=== PATIENT | female | born 1965 | race African-American/Black ===

== ENCOUNTER 2017-02-05 16:53 | Emergency (ER) | payer MEDICAID, OTHER ==
[~2017-02-05] VITALS: Ht 167.6 cm; Wt 81.6 kg
[~2017-02-05 16:53] MED LIST: ALBU8.5H3 INH; ALBU8.5H5 INH; AMLO5TAB2 PO; FLUT1AER INH; HYDR25TA6 PO; OMEP-110 PO; PRED20TA PO
[2017-02-05 18:24] LABS: ASPARTATE AMINO TRANSFERASE 9 U/L (15-37); BLOOD UREA NITROGEN 16 mg/dL (7-18)
[2017-02-05 18:48] LABS: HEMOGLOBIN 12.8 g/dL (11.7-16.4)
[2017-02-05] MEDS ORDERED: HALOPERIDOL 5 MG/ML IM ONE (19:00)
[2017-02-05 20:45] VITALS: BP 137/80
== END 2017-02-05 20:41 | disposition home or self-care (01) ==
LOC: ED 20:30
DX: R10.84 Generalized abdominal pain (principal); K59.00 Constipation, unspecified; R20.0 Anesthesia of skin; I10 Essential (primary) hypertension; J45.909 Unspecified asthma, uncomplicated; Z88.1 Allergy status to other antibiotic agents; Z88.2 Allergy status to sulfonamides
CPT/HCPCS: 36415; 74020; 80053; 81003; 83690; 84703; 85025

== ENCOUNTER 2017-02-26 15:42 | Emergency (ER) | payer MEDICAID ==
[~2017-02-26] VITALS: Ht 167.6 cm; Wt 79.0 kg
[2017-02-26 15:58] VITALS: BP 147/84
[2017-02-26] MEDS ORDERED: ALBUTEROL SULFATE 2.5 MG/3 ML NPPB ONE (16:30)
== END 2017-02-26 17:13 | disposition home or self-care (01) ==
LOC: ED 17:07
DX: J45.31 Mild persistent asthma with (acute) exacerbation (principal); J00 Acute nasopharyngitis [common cold]; M25.552 Pain in left hip; I10 Essential (primary) hypertension
CPT/HCPCS: 71020; 73502; 93005; 94640; 99284; J7512; J7613

== ENCOUNTER 2017-02-27 23:25 | Emergency (ER) | payer MEDICAID ==
[~2017-02-27] VITALS: Ht 167.6 cm; Wt 80.0 kg
[2017-02-27] MEDS ORDERED: SODIUM CHLORIDE 0.9% 1,000ML IVBOLUS ONE (23:30)
[2017-02-27] MEDS ORDERED: LORazepam 2 MG/ML, 1ML IVP ONE (23:30)
[2017-02-27] MEDS ORDERED: SODIUM CHLORIDE FLUSH 10ML SYR IVF ONE (23:30)
[2017-02-27] MEDS ORDERED: methylPREDNISolone SOD SUCC 125 MG/2 ML IVP ONE (23:30)
[2017-02-27] MEDS ORDERED: methylPREDNISolone SOD SUCC 125 MG/2 ML ONE (23:37)
[2017-02-27] MEDS ORDERED: LORazepam 2 MG/ML, 1ML ONE (23:38)
[2017-02-27] MEDS ORDERED: ALBUTEROL/IPRATROPIUM 2.5MG/0.5MG, 3 ML ONE (23:48)
[2017-02-28] MEDS ORDERED: ALBUTEROL/IPRATROPIUM 2.5MG/0.5MG, 3 ML NPPB ONE
[2017-02-28 00:02] LABS: HEMOGLOBIN 12.6 g/dL (11.7-16.4)
[2017-02-28 00:12] LABS: BLOOD UREA NITROGEN 13 mg/dL (7-18)
[2017-02-28 00:16] LABS: IS PT STATUS REG ER OR PRE ER? YES
[2017-02-28 00:53] VITALS: BP 156/98
== END 2017-02-28 00:55 | disposition home or self-care (01) ==
LOC: ED 23:44
DX: J45.901 Unspecified asthma with (acute) exacerbation (principal)
CPT/HCPCS: 36415; 71010; 80048; 80307; 82040; 83880; 84484; 85025; 85379; 93005; 94640; 96361; 96374; 96375; 99285; J2060; J2930; J7030; J7620

== ENCOUNTER 2017-06-03 01:06 | Emergency (ER) | payer SELFPAY ==
[~2017-06-03] VITALS: Ht 167.6 cm; Wt 54.5 kg
[2017-06-03] MEDS ORDERED: ASPIRIN 81 MG TABLET CHEW ONE (01:42)
[2017-06-03] MEDS: ASPIRIN 81 MG TABLET CHEW PO ONE ×2 (01:45→01:46)
[2017-06-03] MEDS ORDERED: SODIUM CHLORIDE 0.9% 1,000ML IVBOLUS ONE (02:00)
[2017-06-03] MEDS ORDERED: SODIUM CHLORIDE FLUSH 10ML SYR IVF ONE (02:00)
[2017-06-03 02:04] LABS: BLOOD UREA NITROGEN 15 mg/dL (7-18)
[2017-06-03 02:09] LABS: IS PT STATUS REG ER OR PRE ER? YES
[2017-06-03 06:19] LABS: IS PT STATUS REG ER OR PRE ER? YES
[2017-06-03 06:24] VITALS: BP 119/69
== END 2017-06-03 06:31 | disposition home or self-care (01) ==
LOC: ED 02:33
DX: R07.89 Other chest pain (principal); I10 Essential (primary) hypertension; J45.909 Unspecified asthma, uncomplicated; Z90.710 Acquired absence of both cervix and uterus
CPT/HCPCS: 36415; 71010; 80048; 82040; 83880; 84484; 85025; 85379; 93005; 96360; 96361; 99285; J7030

== ENCOUNTER 2017-09-02 19:05 | Emergency (ER) | payer BC ==
[~2017-09-02] VITALS: Ht 167.6 cm; Wt 88.9 kg
[~2017-09-02 19:05] MED LIST changes: -ALBU8.5H3 INH; +ALBU8.5H8 INH
[2017-09-02] MEDS ORDERED: KETOROLAC 30 MG/1 ML ONE (20:15)
[2017-09-02] MEDS ORDERED: KETOROLAC 30 MG/1 ML IM PRN (20:30)
[2017-09-02 21:56] VITALS: BP 124/80
== END 2017-09-02 21:58 | disposition home or self-care (01) ==
LOC: ED 20:07
DX: G44.219 Episodic tension-type headache, not intractable (principal); I10 Essential (primary) hypertension; J45.909 Unspecified asthma, uncomplicated; Z88.0 Allergy status to penicillin; Z90.710 Acquired absence of both cervix and uterus
CPT/HCPCS: 70450; 96372; 99284; J1885

== ENCOUNTER 2017-10-21 10:38 | Inpatient (IN) | payer BC ==
[~2017-10-21] VITALS: Ht 167.6 cm; Wt 86.4 kg
[2017-10-21] MEDS ORDERED: SODIUM CHLORIDE FLUSH 10ML SYR IVF ONE (11:30)
[2017-10-21 11:54] LABS: HEMATOCRIT 38.9 % (34.6-47.8); HEMOGLOBIN 12.9 g/dL (11.7-16.4); WHITE BLOOD COUNT 7.1 x10^3/uL (3.4-10)
[2017-10-21 12:03] LABS: ASPARTATE AMINO TRANSFERASE 26 U/L (15-37); BLOOD UREA NITROGEN 11 mg/dL (7-18)
[2017-10-21] MEDS ORDERED: HYDROmorphone 1 MG/ML, 1ML ONE ×3 (12:23→17:15)
[2017-10-21] MEDS ORDERED: ONDANSETRON 2MG/ML, 2ML ONE ×2 (12:23→15:18)
[2017-10-21] MEDS ORDERED: HYDROmorphone 1 MG/ML, 1ML IVPush PRN (12:30)
[2017-10-21] MEDS ORDERED: ONDANSETRON 2MG/ML, 2ML IVPush ONE ×2 (12:30→15:30)
[2017-10-21] MEDS ORDERED: OMNIPAQUE 350 MG/ML, 100ML BOTTLE ONE (12:54)
[2017-10-21] MEDS ORDERED: SODIUM CHLORIDE 0.9% 1,000 ML IV ONE (16:35)
[2017-10-21] MEDS: SODIUM CHLORIDE 0.9% 1,000 ML IV SCH ×2 (16:54→22:58)
[2017-10-21] MEDS ORDERED: LORazepam 2 MG/ML, 1ML IVPush PRN (17:00)
[2017-10-21] MEDS ORDERED: SODIUM CHLORIDE FLUSH 10ML SYR IVF PRN (17:00)
[2017-10-21] MEDS ORDERED: LABETALOL 5MG/ML, 20ML IVPush PRN (17:00)
[2017-10-21] MEDS ORDERED: PROMETHAZINE 25 MG/ML, 1ML IM PRN (17:00)
[2017-10-21] MEDS ORDERED: ENALAPRILAT 1.25 MG/ML, 2ML IVPush PRN (17:00)
[2017-10-21] MEDS ORDERED: ONDANSETRON ODT 4 MG PO PRN (17:00)
[2017-10-21] MEDS ORDERED: HYDROmorphone 2 MG/ML, 1ML IVPush PRN (17:00)
[2017-10-21] MEDS: ONDANSETRON 2MG/ML, 2ML IVPush PRN (17:48)
[2017-10-21] MEDS: ENOXAPARIN 40 MG/0.4 ML SQ SCH ×2 (17:49→21:00)
[2017-10-21 17:54] VITALS: BP 152/87
[2017-10-21 18:01] VITALS: BP 152/87
[2017-10-21 19:46] VITALS: BP 154/96
[2017-10-22 02:05] VITALS: BP 157/97
[2017-10-22] MEDS: SODIUM CHLORIDE 0.9% 1,000 ML IV SCH ×4 (04:24→21:58)
[2017-10-22 05:37] LABS: ASPARTATE AMINO TRANSFERASE 16 U/L (15-37); BLOOD UREA NITROGEN 6 mg/dL (7-18)
[2017-10-22 05:57] LABS: HEMATOCRIT 38.6 % (34.6-47.8); HEMOGLOBIN 12.6 g/dL (11.7-16.4); WHITE BLOOD COUNT 8.6 x10^3/uL (3.4-10)
[2017-10-22] MEDS ORDERED: POTASSIUM CHLORIDE 20 MEQ TAB.ER.PRT PO ONE (07:00)
[2017-10-22 07:30] VITALS: BP 163/82
[2017-10-22] MEDS: LISINOPRIL 10 MG TABLET PO SCH (09:26)
[2017-10-22] MEDS: ONDANSETRON 2MG/ML, 2ML IVPush PRN ×2 (09:26→15:40)
[2017-10-22 13:48] VITALS: BP 141/91
[2017-10-22] MEDS: LORazepam 2 MG/ML, 1ML IVPush PRN (18:10)
[2017-10-22 19:20] VITALS: BP 142/87
[2017-10-22] MEDS: ENOXAPARIN 40 MG/0.4 ML SQ SCH (20:05)
[2017-10-22] MEDS ORDERED: LORazepam 2 MG/ML, 1ML IVPush PRN (21:00)
[2017-10-23 01:33] VITALS: BP 150/91
[2017-10-23] MEDS: SODIUM CHLORIDE 0.9% 1,000 ML IV SCH ×3 (03:02→19:14)
[2017-10-23] MEDS: LORazepam 2 MG/ML, 1ML IVPush PRN ×3 (07:33→19:57)
[2017-10-23 08:00] VITALS: BP 171/93
[2017-10-23] MEDS: LISINOPRIL 10 MG TABLET PO SCH (08:14)
[2017-10-23 13:30] VITALS: BP 148/93
[2017-10-23] MEDS ORDERED: morphine SULFATE 10 MG/ML, 1ML IVPush PRN (15:30)
[2017-10-23 19:45] VITALS: BP 159/93
[2017-10-23] MEDS: ENOXAPARIN 40 MG/0.4 ML SQ SCH (19:57)
[2017-10-24] MEDS: SODIUM CHLORIDE 0.9% 1,000 ML IV SCH ×3 (00:46→11:18)
[2017-10-24] MEDS: LORazepam 2 MG/ML, 1ML IVPush PRN ×3 (00:46→21:26)
[2017-10-24 02:19] VITALS: BP 142/87
[2017-10-24 05:52] LABS: HEMATOCRIT 38.1 % (34.6-47.8); HEMOGLOBIN 12.7 g/dL (11.7-16.4)
[2017-10-24 06:04] LABS: BLOOD UREA NITROGEN 4 mg/dL (7-18)
[2017-10-24 06:52] VITALS: BP 153/85
[2017-10-24] MEDS: LISINOPRIL 10 MG TABLET PO SCH (08:43)
[2017-10-24] MEDS ORDERED: POTASSIUM CHLORIDE 20 MEQ TAB.ER.PRT PO ONE (10:00)
[2017-10-24 12:13] VITALS: BP 147/85
[2017-10-24] MEDS: NS + 40MEQ KCL 1,000 ML IV SCH ×2 (12:43→21:17)
[2017-10-24] MEDS ORDERED: ACETAMINOPHEN 325 MG TABLET PO PRN (13:00)
[2017-10-24 13:46] LABS: RAPID INFLUENZA A Negative (Negative); RAPID INFLUENZA B Negative (Negative)
[2017-10-24 19:03] VITALS: BP 135/86
[2017-10-24] MEDS: ENOXAPARIN 40 MG/0.4 ML SQ SCH (21:17)
[2017-10-24] MEDS: GUAIFENESIN 200 MG TABLET PO PRN (21:25)
[2017-10-25 01:40] VITALS: BP 119/74
[2017-10-25] MEDS: NS + 40MEQ KCL 1,000 ML IV SCH (05:10)
[2017-10-25 06:49] VITALS: BP 133/87
[2017-10-25] MEDS: LISINOPRIL 10 MG TABLET PO SCH (09:38)
[2017-10-25 10:15] LABS: BLOOD UREA NITROGEN 3 mg/dL (7-18)
[2017-10-25 12:31] VITALS: BP 146/93
[2017-10-25] MEDS: SODIUM CHLORIDE 0.9% 1,000 ML IV SCH ×2 (13:44→22:31)
[2017-10-25 19:19] VITALS: BP 136/95
[2017-10-25] MEDS: ENOXAPARIN 40 MG/0.4 ML SQ SCH (19:55)
[2017-10-25] MEDS: GUAIFENESIN 200 MG TABLET PO PRN (19:55)
[2017-10-25] MEDS: LORazepam 2 MG/ML, 1ML IVPush PRN (22:32)
[2017-10-26 00:41] VITALS: BP 124/80
[2017-10-26 05:57] VITALS: BP 129/83
[2017-10-26] MEDS: SODIUM CHLORIDE 0.9% 1,000 ML IV SCH ×2 (05:59→17:18)
[2017-10-26 06:01] LABS: BLOOD UREA NITROGEN 4 mg/dL (7-18)
[2017-10-26] MEDS: LISINOPRIL 10 MG TABLET PO SCH (10:53)
[2017-10-26] MEDS: GUAIFENESIN 200 MG TABLET PO PRN ×2 (10:53→17:20)
[2017-10-26] MEDS: LORazepam 2 MG/ML, 1ML IVPush PRN (11:14)
[2017-10-26 14:21] VITALS: BP 136/82
[2017-10-26 20:19] VITALS: BP 126/75
[2017-10-26] MEDS: ENOXAPARIN 40 MG/0.4 ML SQ SCH (20:28)
[2017-10-27] MEDS: SODIUM CHLORIDE 0.9% 1,000 ML IV SCH ×2 (02:00→09:29)
[2017-10-27 02:49] VITALS: BP 131/83
[2017-10-27] MEDS: LORazepam 2 MG/ML, 1ML IVPush PRN (04:16)
[2017-10-27 07:10] VITALS: BP 145/95
[2017-10-27] MEDS: GUAIFENESIN 200 MG TABLET PO PRN (09:27)
[2017-10-27] MEDS: LISINOPRIL 10 MG TABLET PO SCH (09:27)
[2017-10-27 14:18] VITALS: BP 137/91
== END 2017-10-27 15:07 | disposition home or self-care (01) | DRG 440 ==
LOC: ED 11:41 → 3NE 16:54
PROVIDERS: ADMIT Internal Medicine; ATTEND Internal Medicine
DX: K85.20 Alcohol induced acute pancreatitis without necrosis or infection (principal); E87.6 Hypokalemia; F10.20 Alcohol dependence, uncomplicated; F41.9 Anxiety disorder, unspecified; I10 Essential (primary) hypertension; J45.909 Unspecified asthma, uncomplicated; R73.9 Hyperglycemia, unspecified; R74.8 Abnormal levels of other serum enzymes; Z90.710 Acquired absence of both cervix and uterus; Z82.5 Family history of asthma and other chronic lower respiratory diseases
CPT/HCPCS: 36415; 74177; 76700; 80048; 80053; 80061; 80307; 81003; 83690; 83735; 84100; 85025; 87400; 96374; 96375; 96376; J1170; J1650; J2405; Q9967; G0479; J2060; J3480; J7030

== ENCOUNTER 2019-11-14 07:11 | Emergency (ER) | payer MEDICAID ==
[~2019-11-14] VITALS: Ht 167.6 cm; Wt 80.0 kg
[~2019-11-14 07:11] MED LIST changes: +AMLO-150 PO; -AMLO5TAB2 PO
[2019-11-14] MEDS ORDERED: ALBU6.7H8 INH (07:41)
[2019-11-14] MEDS ORDERED: LOSA1TAB22 PO (07:41)
--- NOTE | 2019-11-14 07:42 | NUR ---
THIS IS A 54 YO F W/ C/O COUGH, DIFFICULTY BREATHING AND LECHUGA FOR 2 WEEKS. REPORTS HX OF ASTHMA BUT INHALER HAS PROVIDED NO RELIEF. RESPIRATIONS ARE EVEN AND UNLABORED. PATIENT IS IN NO ACUTE DISTRESS. PROVIDER AT BEDSIDE. CALL LIGHT IN REACH. DENIES FURTHER NEEDS AT THIS TIME.
--- NOTE | 2019-11-14 08:06 | NUR ---
PATIENT IS RESTING ON GURNEY CONVERSING WITH . CALL LIGHT IN REACH. DENIES FURTHER NEEDS AT THIS TIME.
[2019-11-14 08:25] LABS: RAPID INFLUENZA A Negative (Negative); RAPID INFLUENZA B Negative (Negative)
[2019-11-14 08:36] VITALS: BP 166/103
--- NOTE | 2019-11-14 09:35 | NUR ---
TASK RN: FIRST CONTACT WITH PT. Patient/Caregiver given discharge instructions and they have confirmed that they understand the instructions. Patient ambulatory with steady gait. PT LEFT WITH ALL PERSONAL BELONGINGS
== END 2019-11-14 09:37 | disposition home or self-care (01) ==
LOC: ED 07:45
DX: B34.9 Viral infection, unspecified (principal); I10 Essential (primary) hypertension; J45.909 Unspecified asthma, uncomplicated; Z90.710 Acquired absence of both cervix and uterus
CPT/HCPCS: 71046; 87400; 93005; 99284

== ENCOUNTER 2019-11-15 11:18 | Emergency (ER) | payer MEDICAID ==
[~2019-11-15] VITALS: Ht 167.6 cm; Wt 80.0 kg
[~2019-11-15 11:18] MED LIST changes: +ALBU6.7H8 INH; +LOSA1TAB22 PO
[2019-11-15 11:25] VITALS: BP 146/86
--- NOTE | 2019-11-15 11:55 | NUR ---
ERP DR. CUADRA AT BEDSIDE.
--- NOTE | 2019-11-15 12:07 | NUR ---
REPORT GIVEN TO ADRIANNE BOYER.
--- NOTE | 2019-11-15 12:11 | NUR ---
Pt here for allergic reaction to Losartan/hydrochlorothiazide. Pt has no airway distress. Lips do appear slightly swollen but pt is speaking clearly and breathing without distress. Awaiting further orders.
--- NOTE | 2019-11-15 12:34 | NUR ---
Patient/Caregiver given discharge instructions and they have confirmed that they understand the instructions. Patient ambulatory with steady gait.
== END 2019-11-15 12:36 | disposition home or self-care (01) ==
LOC: ED 11:45
DX: J01.10 Acute frontal sinusitis, unspecified (principal); T78.3XXA Angioneurotic edema, initial encounter; J01.00 Acute maxillary sinusitis, unspecified; I10 Essential (primary) hypertension; J45.909 Unspecified asthma, uncomplicated
CPT/HCPCS: 99283

== ENCOUNTER 2020-05-10 14:16 | Emergency (ER) | payer SELFPAY ==
[~2020-05-10] VITALS: Ht 167.6 cm; Wt 87.4 kg
--- NOTE | 2020-05-10 14:51 | NUR ---
pt presents to ED with c/o generalized swelling x 2 days, pt reports bilateral leg pain, denies pain to every other location, denies sob. bp and spo2 monitors in place. call light in reach. pt in gown. awaiting provider assessment.
--- NOTE | 2020-05-10 15:03 | NUR ---
REPORT GIVEN TO ADRIANNE ELDER AT BEDSIDE.
--- NOTE | 2020-05-10 15:09 | NUR ---
REPORT RC'VD FROM RENITA SILVER AND CARE OF PT ASSUMED. PT LYING IN GURNEY, NO OBVIOUS SIGNS OF DISTRESS.
--- NOTE | 2020-05-10 15:52 | NUR ---
PT AMBULATED TO BR WITHOUT DIFFICULTY. INSTRUCTED ON CLEAN CATCH URINE SAMPLE.
[2020-05-10 16:06] LABS: ALBUMIN 3.9 g/dL (3.4-5.0); ANION GAP 9 mmol/L (5-15); CALCIUM 9.1 mg/dL (8.5-10.1); CHLORIDE 106 mmol/L (98-107)
[2020-05-10 16:09] LABS: MICROSCOPIC NOT IND
[2020-05-10 16:19] LABS: ALANINE AMINOTRANSFERASE 28 U/L (12-78); ALKALINE PHOSPHATASE 113 U/L (45-117); BILIRUBIN,TOTAL 0.5 mg/dL (0.2-1.0); CREATININE 0.74 mg/dL (0.55-1.02); TOTAL PROTEIN 7.9 g/dL (6.4-8.2)
[2020-05-10 16:32] LABS: MEAN CORPUSCULAR HEMOGLOBIN 28.3 pg (27.0-34.8); MEAN CORPUSCULAR HGB CONC 32.7 g/dL (32.4-35.8); MEAN CORPUSCULAR VOLUME 86.4 fL (80-100); PLATELET COUNT 252 x10^3/uL (130-400); RED CELL DISTRIBUTION WIDTH 13.9 % (9.6-15.2)
--- NOTE | 2020-05-10 16:39 | NUR ---
PT USING CELL PHONE IN ROOM, NO S/S OF DISTRESS. CHART UP FOR RECHECK.
[2020-05-10 16:57] LABS: BASOPHILS # (AUTO) 0.02 x10^3/uL (0-0.1); BASOPHILS % (AUTO) 0 % (0-1); EOSINOPHILS # (AUTO) 0.13 x10^3/uL (0-0.4); EOSINOPHILS % (AUTO) 2 % (1-7); LYMPHOCYTES % (AUTO) 34 % (22-44); MD SCAN; MONOCYTES # (AUTO) 0.17 x10^3/uL (0.2-0.8); MONOCYTES % (AUTO) 3 % (2-9); NEUTROPHILS # (AUTO) 3.75 x10^3/uL (1.8-6.8); NEUTROPHILS % (AUTO) 61 % (42-75)
--- NOTE | 2020-05-10 17:05 | NUR ---
ERP AT FOR RECHECK.
[2020-05-10 17:25] VITALS: BP 178/108
--- NOTE | 2020-05-10 17:26 | NUR ---
ERP NOTIFIED OF PT'S BP, OKAY TO DISCHARGE PER ERP. D/C INSTRUCTIONS & F/U APPT RV'WD WITH PT. INSTRUCTED PT TO F/U WITH ONE OF CLINCS IN [place] [facility] TO ESTABLISH CARE WITH PCP AND GET BACK ON BP MED. PT VERBALIZES UNDERSTANDING. AMBULATED OUT OF ED WITHOUT DIFFICULTY.
== END 2020-05-10 17:29 | disposition home or self-care (01) ==
LOC: ED 16:15
DX: R73.9 Hyperglycemia, unspecified (principal); M79.89 Other specified soft tissue disorders; I10 Essential (primary) hypertension; J45.909 Unspecified asthma, uncomplicated; Z90.710 Acquired absence of both cervix and uterus
CPT/HCPCS: 36415; 80053; 81003; 83880; 84443; 85025; 99283